=== PATIENT | female | born 1985 | race Caucasian/White ===

== ENCOUNTER 2023-01-06 16:14 | Inpatient (IN) | payer MEDICAID ==
[~2023-01-06] VITALS: Ht 160 cm; Wt 102.7 kg
[2023-01-06] MEDS ORDERED: QUEtiapine FUMARATE 100 MG TABLET PO PRN (17:45)
[2023-01-06] MEDS ORDERED: LORazepam 2 MG TABLET PO PRN (17:45)
[2023-01-06 17:56] LABS: BASOPHILS % (AUTO) 0.4 % (0.0-2.0); HEMATOCRIT 41.7 % (36-46); HEMOGLOBIN 13.7 g/dL (12.0-16.0); LYMPHOCYTES # (AUTO) 1.3 K/uL (1.0-4.8); LYMPHOCYTES % (AUTO) 27.2 % (22.0-44.0); MEAN CORPUSCULAR HEMOGLOBIN 26.3 pg (26.0-34.0); MEAN CORPUSCULAR HGB CONC 32.8 G/dL (31.0-37.0); MEAN CORPUSCULAR VOLUME 80 fL (80-100); MONOCYTES # (AUTO) 0.3 K/uL (0.1-1.0); MONOCYTES % (AUTO) 6.7 % (2.0-9.0); NEUTROPHILS # (AUTO) 3.2 K/uL (1.8-7.7); NEUTROPHILS % (AUTO) 64.7 % (40.0-70.0); PLATELET COUNT (AUTO) 226 K/uL (150-450); RED BLOOD CELL COUNT(AUTO) 5.19 MIL/uL (4.00-5.20); RED CELL DISTRIBUTION WIDTH 13.9 % (11.5-14.5)
[2023-01-06 18:12] LABS: ANION GAP 7 mmol/L (8-16); CARBON DIOXIDE 29 mmol/L (22-29); CHLORIDE 106 mmol/L (98-107); CREATININE 0.51 mg/dL (0.60-1.30); GLOMERULAR FILTR. RATE CALC > 60 mL/min (>60); GLUCOSE,RANDOM 85 mg/dL (70-110); POTASSIUM 3.6 mmol/L (3.5-5.1); SODIUM SERUM 142 mmol/L (136-145); UREA NITROGEN, BLOOD 16 mg/dL (7-18)
[2023-01-06 18:17] LABS: ALANINE AMINOTRANSFERASE 26 U/L (12-78); ALBUMIN 3.9 g/dL (3.4-5.0); ALKALINE PHOSPHATASE 83 U/L (46-116); ASPARTATE AMINOTRANSFERASE 20 U/L (15-37); BILIRUBIN,TOTAL 0.3 mg/dL (0.1-1.0); TOTAL PROTEIN, SERUM 7.9 g/dL (6.4-8.2)
[2023-01-06] MEDS ORDERED: LORazepam 2 MG TABLET PO ONE (19:30)
[2023-01-06 20:13] LABS: APPEARANCE,URINE CLEAR (CLEAR); BILIRUBIN,URINE NEGATIVE (NEGATIVE); GLUCOSE, URINE (UA) NEGATIVE (NEGATIVE); KETONES,URINE NEGATIVE (NEGATIVE); LEUKOCYTE ESTERASE ,URINE NEGATIVE (NEGATIVE); NITRATE,URINE NEGATIVE (NEGATIVE); OCCULT BLOOD,URINE NEGATIVE (NEGATIVE); PH,URINE 6.5 (5.0-8.0); PROTEIN,URINE NEGATIVE (NEGATIVE); SPECIFIC GRAVITIY, URINE 1.022 (1.003-1.030); UROBILINOGEN,URINE <=1.0 mg/dL (<=1.0)
[2023-01-06 20:17] LABS: AMPHET/METH SCREEN,URINE NEGATIVE (NEGATIVE); BARBITURATE SCREEN, URINE NEGATIVE (NEGATIVE); BENZODIAZEPINES SCREEN,URINE NEGATIVE (NEGATIVE); CANNABINOID SCREEN,URINE NEGATIVE (NEGATIVE); COCAINE SCREEN,URINE NEGATIVE (NEGATIVE); METHADONE SCREEN, URINE NEGATIVE (NEGATIVE); OPIATE SCREEN,URINE NEGATIVE (NEGATIVE); PHENCYCLIDINE SCREEN,URINE NEGATIVE (NEGATIVE)
[2023-01-06] MEDS ORDERED: ACETAMINOPHEN 500 MG TABLET PO ONE (20:30)
[2023-01-06] MEDS ORDERED: ONDANSETRON HCL 4 MG TABLET PO ONE (20:30)
[2023-01-06 21:00] LABS: FREE T4 (FREE THYROXINE) 1.64 ng/dL (0.76-1.46)
[2023-01-06 21:21] LABS: THYROID STIMULATING HORMONE < 0.01 uIU/mL (0.36-3.74)
[2023-01-06 21:43] LABS: COVID AG,FIA SOURCE NASAL SWAB
[2023-01-06 23:00] VITALS: BP 107/61
[2023-01-06] MEDS: ZOLPIDEM TARTRATE 10 MG TABLET PO PRN (23:05)
[2023-01-07] MEDS ORDERED: ACETAMINOPHEN 325 MG TABLET PO PRN (07:45)
[2023-01-07] MEDS ORDERED: DOCUSATE SODIUM 100 MG CAPSULE PO PRN (07:45)
[2023-01-07] MEDS ORDERED: GuaiFENesin/D-METHORPHAN [SUGAR-FREE] 200-20MG/10 ML SYRUP UDCUP PO PRN (07:45)
[2023-01-07] MEDS ORDERED: NICOTINE 14 MG/24 HOUR PATCH TD PRN (07:45)
[2023-01-07] MEDS ORDERED: PETROLATUM,WHITE 28 GM JELLY TP PRN (07:45)
[2023-01-07] MEDS ORDERED: CloNIDine HCL 0.1 MG TABLET PO PRN (07:45)
[2023-01-07] MEDS ORDERED: LOPERAMIDE HCL 2 MG CAPSULE PO PRN (07:45)
[2023-01-07] MEDS ORDERED: ONDANSETRON HCL 4 MG TABLET PO PRN (07:45)
[2023-01-07] MEDS ORDERED: ALBUTEROL SULFATE HFA 90 MCG/PUFF 8 GM INHALER IH PRN (07:45)
[2023-01-07] MEDS ORDERED: IBUPROFEN 400 MG TABLET PO PRN (07:45)
[2023-01-07] MEDS ORDERED: MAGNESIUM HYDROXIDE SUSPENSION 30 ML UDCUP PO PRN (07:45)
[2023-01-07] MEDS ORDERED: MAG HYDROX/AL HYDROX/SIMETH ES 30 ML SUSPENSION UDCUP PO PRN (07:45)
[2023-01-07 08:40] VITALS: BP 111/60
[2023-01-07] MEDS ORDERED: PROPYLTHIOURACIL 50 MG TABLET PO SCH (09:00)
[2023-01-07] MEDS: SERTRALINE HCL 50 MG TABLET PO SCH (14:27)
[2023-01-07] MEDS: PROPYLTHIOURACIL 50 MG TABLET PO SCH (14:27)
[2023-01-07 16:36] VITALS: BP 111/71
[2023-01-07] MEDS: ZOLPIDEM TARTRATE 10 MG TABLET PO PRN (20:53)
[2023-01-07 20:59] VITALS: BP 101/67
[2023-01-08 09:53] VITALS: BP 144/76
[2023-01-08] MEDS: PROPYLTHIOURACIL 50 MG TABLET PO SCH (09:57)
[2023-01-08] MEDS: SERTRALINE HCL 50 MG TABLET PO SCH (09:57)
[2023-01-08 16:00] VITALS: BP 110/63
[2023-01-08 20:46] VITALS: BP 129/70
[2023-01-08] MEDS ORDERED: TraZODone HCL 50 MG TABLET PO SCH (21:00)
[2023-01-08] MEDS ORDERED: PROP50TA3 PO (21:11)
[2023-01-08] MEDS ORDERED: TRAZ-252 PO (21:11)
[2023-01-08] MEDS ORDERED: SERT-439 PO (21:11)
[2023-01-09] MEDS: SERTRALINE HCL 50 MG TABLET PO SCH (08:57)
[2023-01-09] MEDS: PROPYLTHIOURACIL 50 MG TABLET PO SCH (08:58)
[2023-01-09 09:54] VITALS: BP 104/80
== END 2023-01-09 10:12 | disposition home or self-care (01) | DRG 751 ==
LOC: EMS 16:32 → 3EI 21:10
PROVIDERS: ADMIT Psychiatry & Neurology Psychiatry; ATTEND Psychiatry & Neurology Psychiatry
DX: F32.2 Major depressive disorder, single episode, severe without psychotic features (principal); R45.851 Suicidal ideations; Z20.822 Contact with and (suspected) exposure to COVID-19; Z79.899 Other long term (current) drug therapy; R03.0 Elevated blood-pressure reading, without diagnosis of hypertension; F10.10 Alcohol abuse, uncomplicated; E66.9 Obesity, unspecified; Z68.41 Body mass index [BMI] 40.0-44.9, adult; F41.9 Anxiety disorder, unspecified
CPT/HCPCS: 80053; 80307; 81003; 84439; 84443; 84703; 85025; 99285; G0480; Q0162